=== PATIENT | female | born 1965 | race Caucasian/White ===

== ENCOUNTER 2016-12-12 21:24 | Emergency (ER) | payer OTHER ==
[~2016-12-12] VITALS: Ht 152.4 cm; Wt 73.9 kg
--- NOTE | ~2016-12-12 | CT52 ---
[facility] A Service of [facility] RADIOLOGY TEXT RESULTS PATIENT: VENKAT SINGH LOCATION: SED : 61 UNIT #: [id number] AGE: [address]: Bari Canales MD SEX: F ORDER DR: [id number] [place] [id number] E MR#: [id number] Acc #: [id number] NAME: VENKAT SINGH : 1965 SEX: F STUDY DATE/TIME: 12/12/2016 22:35 UNIT: SED ROOM: STUDY DESCRIPTION: CT Cervical Spine Wo Cont Attending Physician: Bari Canales M.D. Ordering Physician: Bari Canales M.D. Primary Care Physician: Jacinto Loving M.D. MEDICAL IMAGING REPORT This report is preliminary unless electronic signature is present. EXAM CT cervical spine 12/12/2016 HISTORY 51-year-old female in the ED after syncopal episode and head injury. She fell during syncopal episode at about 1800 hours today, striking the back of her head. Head pain and soft tissue swelling. Neck pain. TECHNIQUE Thin-section axial CT images from the skull base through the upper portion of T2. Sagittal and coronal images were reconstructed. This CT examination was performed with one or more of the following radiation dose reduction techniques: automatic exposure control, adjustment of mA and/or kV according to patient size, and iterative reconstruction. FINDINGS No fracture or other acute osseous abnormality is demonstrated. Mild degenerative disc space narrowing at C4-5 and minimal multilevel bilateral degenerative facet arthropathy. Cervical vertebral alignment is normal. IMPRESSION 1. No acute osseous abnormality. 2. Mild degenerative disc space narrowing at C4-5. Dictated by... Jacinto Gayle M.D. THIS IS AN ELECTRONICALLY VERIFIED REPORT Jacinto Gayle M.D. at 12/13/2016 9:45 PM HALLEW/elida [facility] A Service of [facility] RADIOLOGY TEXT RESULTS PATIENT: VENKAT SINGH LOCATION: [facility] : 61 UNIT #: [id number] AGE: [address]: Bari Canales MD SEX: F ORDER DR: TD: 12/13/2016 10:02 JOB #: [id number] MEDICAL IMAGING REPORT Page 1 of 1
--- NOTE | ~2016-12-12 | CT71 ---
[facility] A Service of [facility] RADIOLOGY TEXT RESULTS PATIENT: VENKAT SINGH LOCATION: SED : 61 UNIT #: [id number] AGE: [address]: Bari Canales MD SEX: F ORDER DR: [id number] [place] [id number] E MR#: [id number] Acc #: [id number] NAME: VENKAT SINGH : 1965 SEX: F STUDY DATE/TIME: 12/12/2016 22:35 UNIT: SED ROOM: STUDY DESCRIPTION: CT Head Wo Contrast Attending Physician: Bari Canales M.D. Ordering Physician: Bari Canales M.D. Primary Care Physician: Jacinto Loving M.D. MEDICAL IMAGING REPORT This report is preliminary unless electronic signature is present. EXAM CT head, noncontrast, 12/12/2016. HISTORY 51-year-old female in the ED after syncopal episode with fall and head injury earlier this evening. Struck back of head. TECHNIQUE CT examination of the head without IV contrast. This CT exam was performed with one or more of the following radiation dose reduction techniques: automatic exposure control, adjustment of mA and/or kV according to patient size, and iterative reconstruction. FINDINGS The examination is negative. No evidence of intracranial hemorrhage, cerebral edema, mass, mass effect, hydrocephalus or additional abnormality. No visible skull fracture. IMPRESSION Negative head CT examination. Dictated by... Jacinto Gayle M.D. THIS IS AN ELECTRONICALLY VERIFIED REPORT Jacinto Gayle M.D. at 12/13/2016 9:45 PM HALLEW/lito TD: 12/13/2016 09:59 JOB #: [id number] MEDICAL IMAGING REPORT [facility] A Service of [facility] RADIOLOGY TEXT RESULTS PATIENT: VENKAT SINGH LOCATION: SED : 61 UNIT #: [id number] AGE: [address]: Bari Canales MD SEX: F ORDER DR: Page 1 of 1
--- NOTE | ~2016-12-12 | EKG ---
PATIENT: VENKAT SINGH UNIT #: [id number] Ventricular Rate: 74 BPM Atrial Rate: 74 BPM P-R Interval: 128 ms QRS Duration: 88 ms Q-T Interval: 380 ms QTC Calculation(Bezet): 421 ms P [place]: 38 degrees Calculated R [place]: -12 degrees Calculated T [place]: 32 degrees Diagnosis Line: Normal sinus rhythm Diagnosis Line: Normal ECG Diagnosis Line: When compared with ECG of 08-NOV-2012 21:48, Diagnosis Line: No significant change was found Diagnosis Line: Confirmed by ALLEN AMADOR MD ([id number]) on Diagnosis Line: 12/15/2016 8:03:29 AM INTERPRETING MD: PERRY ALEMAN
[~2016-12-12 21:24] MED LIST: BACLOFEN10 MG PO; BACLOFEN20 M1 PO; CYMBALTA PO; ESTRACE1 M1 PO; ESTROGEL93 GM VG; FOLATE PO; FORTEO2.4 ML SQ; HYDROCODON-ACE1 EAC5 PO; HYDROCODON-ACE1 EAC7 PO; KCL PO; POTASSIUM CHLO10 MEQ PO; VITAMIN D50000 UNIT PO; VOLTAREN75 MG PO
[2016-12-12] MEDS ORDERED: SINGULAIR PO (21:37)
[2016-12-12] MEDS ORDERED: ALBUTEROL17 GM INH (21:38)
== END 2016-12-12 23:33 | disposition home or self-care (01) ==
LOC: SED 21:24
DX: S00.93XA Contusion of unspecified part of head, initial encounter (principal); R55 Syncope and collapse; Z23 Encounter for immunization; X58.XXXA Exposure to other specified factors, initial encounter
CPT/HCPCS: 70450; 72125; 90471; 90715; 93005; 99284